=== PATIENT | female | born 1990 | race African-American/Black ===

== ENCOUNTER 2021-03-11 15:55 | Emergency (ER) | payer MEDICAID ==
[~2021-03-11] VITALS: Ht 160 cm; Wt 88.2 kg
[2021-03-11 18:30] VITALS: BP 130/72
== END 2021-03-11 18:58 | disposition home or self-care (01) ==
LOC: EMS 15:55
DX: O26.891 Other specified pregnancy related conditions, first trimester (principal); R10.30 Lower abdominal pain, unspecified; Z3A.01 Less than 8 weeks gestation of pregnancy
CPT/HCPCS: 76801; 76817; 84702; 99284